=== PATIENT | male | born 1995 | race Caucasian/White ===

== ENCOUNTER 2018-07-03 22:30 | Emergency (ER) | payer SELFPAY ==
[~2018-07-03] VITALS: Ht 188 cm; Wt 122.5 kg
[2018-07-03 22:46] VITALS: BP 105/74
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
[2018-07-03] MEDS ORDERED: LIDODERM700 M1 TOPIC (23:20)
[2018-07-03] MEDS ORDERED: TYLENOL EXTRA500 MG ORAL (23:20)
[2018-07-03] MEDS ORDERED: ROBAXIN-750750 MG PO (23:20)
[2018-07-03 23:35] VITALS: BP 109/72
--- NOTE | 2018-07-03 23:35 | NUR ---
ER DISCHARGE NOTE: Patient is cleared to be discharged per Dr. Rogers. Pt is A/Ox4 on room air with stable vital signs, pt was given dc and prescription instructions, pt was able to verbalize understanding, pt id band removed. pt is able to ambulate with steady gait and pt took all belongings. Accompanied by his family.
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
== END 2018-07-03 23:35 | disposition home or self-care (01) ==
LOC: EMR 23:00
DX: M79.632 Pain in left forearm (principal); M25.532 Pain in left wrist; J45.909 Unspecified asthma, uncomplicated; Z88.1 Allergy status to other antibiotic agents; V43.52XA Car driver injured in collision with other type car in traffic accident, initial encounter; Y92.410 Unspecified street and highway as the place of occurrence of the external cause
CPT/HCPCS: 99283